=== PATIENT | female | born 1985 | race Caucasian/White ===

== ENCOUNTER 2022-11-14 19:05 | Emergency (ER) | payer MEDICAID, SELFPAY ==
[2022-11-14 19:08] VITALS: BP 157/105; PULSE 87; RESP 18; TEMP 36.6; O2SAT 95; BMI 43.4
--- NOTE | 2022-11-14 19:32 | CTR_ITS ---
PROCEDURE INFORMATION: Exam: CT Abdomen And Pelvis With Contrast Exam date and time: 11/14/2022 7:43 PM Age: 37 years old Clinical indication: Abdominal pain; Localized; Right lower quadrant (rlq); Prior surgery; Surgery date: 6+ months; Surgery type: Tubal, d&c, x4; Additional info: Abdominal pain, bloating, n/v/d, US recently showing abnormal R ovary/mass ? TECHNIQUE: Imaging protocol: Computed tomography of the abdomen and pelvis with contrast. Radiation optimization: All CT scans at this facility use at least one of these dose optimization techniques: automated exposure control; mA and/or kV adjustment per patient size (includes targeted exams where dose is matched to clinical indication); or iterative reconstruction. Contrast material: OMNI 350; Contrast volume: 100 ml; Contrast route: INTRAVENOUS (IV); REPORTING DATA: Count of CT and Cardiac NM exams in prior 12 months: This patient has received 0 known CTs and 0 known cardiac nuclear medicine studies in the 12 months prior to the current study. COMPARISON: CT chest abdpel w/*[id number] 02/18/2018 10:06 PM RADIATION DOSE METRICS: Total DLP (mGy-cm): 949.36 FINDINGS: Lungs: The lung bases appear unremarkable. Liver: Unremarkable. No mass. Gallbladder and bile ducts: Noncalcified gallstones in the gallbladder. There are no secondary signs of cholecystitis. Pancreas: Unremarkable. No ductal dilation. Spleen: Unremarkable. No splenomegaly. Adrenal glands: Unremarkable. No mass. Kidneys and ureters: The kidneys are normal in morphology. No hydronephrosis. No solid mass. Stomach and bowel: No acute gastric abnormality demonstrated. The small bowel is unremarkable as demonstrated. No acute abnormality of the colon. Appendix: No evidence of appendicitis. Intraperitoneal space: No pneumoperitoneum. No significant fluid collection. Vasculature: The aorta is unremarkable as demonstrated. Lymph nodes: No pathologically enlarged lymph nodes are demonstrated. Urinary bladder: The urinary bladder is unremarkable in appearance. Reproductive: 5.5 cm fat density right ovarian lesion consistent with ovarian dermoid. Uterus and left ovary appear unremarkable. Bones/joints: No acute fracture or other acute osseous abnormality. Degenerative spine changes are noted. Soft tissues: Unremarkable. CT/CT abdomen pelvis w con* [id number] IMPRESSION: 1. No acute abnormality demonstrated in the abdomen and pelvis. 2. 5.5 cm fat density right ovarian lesion consistent with ovarian dermoid. This is unchanged from CT abdomen and pelvis of 02/18/2018. 3. Noncalcified gallstones in the gallbladder. There are no secondary signs of cholecystitis. The gallstones are new when compared to CT abdomen of 02/18/2018.
--- NOTE | 2022-11-14 19:32 | W.ED.ABDPA2 ---
HPI - Abdominal Pain General: Chief Complaint: Abdominal Pain Stated Complaint: Swollen Stomach\V Time Seen by Provider: 11/14/22 19:16 Source: patient Mode of arrival: ambulatory Limitations: no limitations History of Present Illness: Patient is a 37-year-old female presents to ED today with complaint of diffuse abdominal pain, bloating, and swelling. She states she feels nauseous and is not able to eat. Patient states pain has been intermittent over the past 6 months or so. She recently has underwent evaluation through her primary care provider at the [facility] and had ultrasound performed which showed a right ovarian mass with recommendations for further evaluation for this. She is having normal bowel movements. No vomiting. No fevers. Menstrual cycle beginning today. Denies vaginal discharge or dyspareunia. MD elicited complaint: abdominal pain Pertinent past history: none Onset (ago): month(s) Pain Consistency: constant Location: Diffuse Severity: moderate Quality: fullness and other (bloating) Radiation: none Migration to: no migration Exacerbating factors: nothing Relieving factors: nothing Associated Symptoms: Reports bloating and nausea; Denies change in bowel habits, chills, dysuria, fever(s), hematochezia, melena and vomiting Related Data: Patient : No Review of Systems Const: Denies: fever(s), chills, body aches, fatigue or malaise Card: Denies: chest pain Resp: Denies: dyspnea GI: Reports: abdominal pain, nausea and bloating; Denies: vomiting, change in bowel habits, pain on defecation, rectal swelling, hematochezia or melena : Reports: vaginal bleeding; Denies: flank pain or dysuria Musc: Reports: back pain; Denies: neck pain, extremity pain, extremity swelling, joint pain or joint swelling Skin/Breast: Denies: rash Neuro: Denies: headache(s), numbness in extremities, weakness in extremities or sensory changes PFSH ED PFSH: Medical History Dermoid cyst of right ovary Psychiatric care Surgical History History of 3 sections History of bilateral tubal ligation Physical Exam Const: COMMON NORMALS: no acute distress, patient oriented x3, no limitations and alert GENERAL APPEARANCE: cooperative NUTRITIONAL APPEARANCE: obese morbidly obese ORIENTATION/CONSCIOUSNESS: Yes awake, Yes oriented to person, Yes oriented to place and Yes oriented to time Resp: COMMON NORMALS: normal respiratory effort and clear to auscultation bilaterally AUSCULTATION: clear to auscultation bilaterally Cardio: COMMON NORMALS: regular rate and regular rhythm RATE: regular rate RHYTHM: regular rhythm GI: COMMON NORMALS: Normal to inspection, nondistended, normoactive bowel sounds present, Soft to palpation and no masses INSPECTION: Yes normal to inspection AUSCULTATION: Yes normoactive bowel sounds PALPATION: Yes Soft to palpation, Yes Tenderness to palpation present (GI) (diffuse but more so to epigastric, RLQ), No Guarding due to palpation present (GI) and No Rigid due to palpation OTHER: limited secondary to body habitus : COMMON NORMALS: Yes no CVA tenderness BLADDER/KIDNEY EXAM: Yes no CVA tenderness Back/Pelvis: COMMON NORMALS: no CVA tenderness, thoracic and lumbar spine normal to inspection, no thoracic nor lumbar tenderness and thoraco-lumbar ROM normal Extremity: COMMON NORMALS: normal to inspection GENERAL: Yes normal exam except as noted Neuro: CARLOS COMA SCALE: document GCS findings [place] coma scale eye opening: Spontaneous Carlos coma scale verbal response: Orientated [place] coma scale motor response: Obey commands Carlos coma scale total score: 15 COMMON NORMALS: patient oriented x3 SENSORIUM/ORIENTATION: Yes alert, Yes oriented to person, Yes oriented to place and Yes oriented to time Skin: COMMON NORMALS: no rashes or lesions noted GENERAL SKIN EXAM: no rashes or lesions noted Course Vital Signs: Vital signs: Vital Signs Temperature 97.8 F 11/14/22 19:08 Pulse Rate 72 11/14/22 20:19 Respiratory Rate 18 11/14/22 20:19 Blood Pressure 165/118 11/14/22 20:19 Pulse Oximetry 96 11/14/22 20:19 Oxygen Delivery Me thod Room Air 11/14/22 20:19 MDM - Abdominal Pain Medical Decision Making Patient's blood work overall is unremarkable. CT imaging showing a 5.5 cm right ovarian lesion consistent with an ovarian dermoid. Radiologist apparently had a CT scan on file back in 2018 which I was not able to visualize and stated this is unchanged from that CT. She will be referred to gynecology for further evaluation and surgical excision if indicated. UA positive for nitrates and trace leuks. She does have blood however this most likely is contamination given her menstrual cycle. She states she is having some lower back discomfort and would like treatment for potential UTI. Recommend she follow-up with primary care provider. Return ED precautions given. Lab Data 11/14/22 19:30 11/14/22 19:30 Labs/Radiology: Radiology Impressions Abdomen/Pelvis CT 11/14/22 19:32 IMPRESSION: 1. No acute abnormality demonstrated in the abdomen and pelvis. 2. 5.5 cm fat density right ovarian lesion consistent with ovarian dermoid. This is unchanged from CT abdomen and pelvis of 02/18/2018. 3. Noncalcified gallstones in the gallbladder. There are no secondary signs of cholecystitis. The gallstones are new when compared to CT abdomen of 02/18/2018. Laboratory Results WBC 8.8 10^3/uL (4.0-10.0) 11/14/22 19:30 RBC 4.65 10^6/uL (4.1-5.3) 11/14/22 19:30 Hgb 12.6 g/dL (11.5-15.3) 11/14/22 19:30 Hct 40.3 % (37.0-47.0) 11/14/22 19:30 MCV 86.7 fl (81-99) 11/14/22 19:30 MCH 27.1 pg (28.0-34.0) L 11/14/22 19:30 MCHC 31.3 g/dL (30.0-36.0) 11/14/22 19:30 RDW 13.6 % (12.1-15.1) 11/14/22 19:30 Plt Count 429 10^3/cmm (130-400) H 11/14/22 19:30 MPV 8.9 fL (7.4-10.4) 11/14/22 19:30 Neut % (Auto) 73.1 % 11/14/22 19:30 Lymph % (Auto) 19.5 % 11/14/22 19:30 [place] % (Auto) 5.5 % 11/14/22 19:30 Eos % (Auto) 1.0 % 11/14/22 19: Baso % (Auto) 0.7 % 11/14/22 19: Neut # (Auto) 6.41 10^3/uL (1.8-7.7) 11/14/22 19:30 Lymph # (Auto) 1.7 10^3/uL (0.8-4.8) 11/14/22 19:30 [place] # (Auto) 0.5 10^3/uL (0.2-0.9) 11/14/22 19:30 Eos # (Auto) 0.1 10^3/uL (0.0-0.8) 11/14/22 19:30 Baso # (Auto) 0.1 10^3/uL (0.0-0.1) 11/14/22 19:30 Nucleated RBC % (auto) 0 % 11/14/22 19: Nucleated RBCs # 0.0 /100WBC 11/14/22 19:30 Sodium 138 mmol/L (136-145) 11/14/22 19:30 Potassium 3.6 mmol/L (3.5-5.1) 11/14/22 19:30 Chloride 101 mmol/L (98-107) 11/14/22 19: Carbon Dioxide 26 mmol/L (22-29) 11/14/22 19:30 Anion Gap 14.6 (5-19) 11/14/22 19:30 BUN 11 mg/dL (6-20) 11/14/22 19:30 Creatinine 0.8 mg/dL (0.5-0.9) 11/14/22 19:30 GFR Calculation 80.7 mL/min (90-130) L 11/14/22 19:30 Glucose 116 mg/dL (65-115) H 11/14/22 19:30 Calculated Osmolality 286 mOsm/kg (285-295) 11/14/22 19:30 Calcium 9.4 mg/dL (8.5-10.5) 11/14/22 19:30 Total Bilirubin 0.2 mg/dL (0.15-1.2) 11/14/22 19:30 AST 18 U/L (0-32) 11/14/22 19:30 ALT 18 U/L (0-33) 11/14/22 19:30 Alkaline Phosphatase 75 U/L (35-105) 11/14/22 19:30 C-Reactive Protein 11.4 mg/L (0.0-4.9) H 11/14/22 19:30 Total Protein 7.5 g/dL (6.6-8.7) 11/14/22 19:30 Albumin 4.5 g/dL (3.5-5.2) 11/14/22 19:30 Globulin 3.0 g/dL (1.3-4.6) 11/14/22 19:30 Lipase 25 U/L (13-60) 11/14/22 19:30 HCG, Qual Negative (Negative) 11/14/22 19:30 Urine Color Yellow (Yellow) 11/14/22 21:00 Urine Appearance Clear (CLEAR) 11/14/22 21:00 Urine pH 7 (5-7) 11/14/22 21:00 Ur Specific [place] 1.000 (1.005-1.030) L 11/14/22 21:00 Urine Protein Trace (Negative) 11/14/22 21:00 Urine Glucose (UA) Norm (Normal) 11/14/22 21:00 Urine Ketones 1+ (Negative) H 11/14/22 21:00 Urine Blood 3+ (Negative) H 11/14/22 21:00 Urine Nitrate Positive (Negative) H 11/14/22 21:00 Urine Bilirubin Neg (Negative) 11/14/22 21:00 Urine Urobilinogen Norm mg/dL (Negative) 11/14/22 21:00 Ur Leukocyte Esterase Trace (Negative) H 11/14/22 21:00 Urine RBC 0-4 /hpf (0-2) H 11/14/22 21:00 Urine WBC 0-4 /hpf (0-5) H 11/14/22 21:00 Ur Squamous Epith Cells 0-4 /hpf (0-5) H 11/14/22 21:00 Amorphous Sediment Not Reportable 11/14/22 21:00 Urine Bacteria 1+ /hpf (NONE) H 11/14/22 21:00 Discharge Plan Discharge Patient Disposition: Home Clinical Impression: Dermoid cyst of right ovary Condition: Stable Prescriptions: New Macrobid 100 mg capsule 100 mg PO BID 7 Days Qty: 14 0RF Rx Instructions: must administer with a meal/food No Action prazosin 5 mg capsule 5 mg PO .HS Qty: 30 1RF trazodone 50 mg tablet 100 mg PO .HS PRN (Reason: insomnia) Qty: 60 2RF duloxetine 20 mg capsule,delayed release(DR/EC) 20 mg PO DAILY Qty: 30 1RF Discharge Orders: Discharge ED (Routine); Ordered 11/14/22 Ordered By: Yu West Referrals: Lubna Romero DO [Primary Care Provider] - Coding Level of Care Code ED Lens Grinder Rough for Ana Lilia Jain
[2022-11-14] MEDS: iohexol 350 mg/mL 500 mL Btl (per mL) IV (19:50)
[2022-11-14 19:52] LABS: Basophils # 0.1 10^3/uL (0.0-0.1); Basophils % 0.7 %; Eosinophils # 0.1 10^3/uL (0.0-0.8); Hematocrit 40.3 % (37.0-47.0); Hemoglobin 12.6 g/dL (11.5-15.3); Lymphocytes # 1.7 10^3/uL (0.8-4.8); Lymphocytes % 19.5 %; Mean Corpuscular HGB Conc 31.3 g/dL (30.0-36.0); Mean Corpuscular Hemoglobin 27.1 pg (28.0-34.0); Mean Corpuscular Volume 86.7 fl (81-99); Mean Platelet Volume 8.9 fL (7.4-10.4); Monocytes # 0.5 10^3/uL (0.2-0.9); Monocytes % 5.5 %; Neutrophils # 6.41 10^3/uL (1.8-7.7); Neutrophils % 73.1 %; Nucleated Red Blood Cells % 0 %; Platelet Count 429 10^3/cmm (130-400); Red Blood Count 4.65 10^6/uL (4.1-5.3); Red Cell Distribution Width 13.6 % (12.1-15.1); White Blood Count 8.8 10^3/uL (4.0-10.0)
[2022-11-14 20:00] LABS: HCG, Serum Qual Negative (Negative)
[2022-11-14 20:04] LABS: Alanine Aminotransferase 18 U/L (0-33); Albumin Level 4.5 g/dL (3.5-5.2); Alkaline Phosphatase 75 U/L (35-105); Anion Gap 14.6 (5-19); Aspartate Amino Transferase 18 U/L (0-32); Blood Urea Nitrogen 11 mg/dL (6-20); C Reactive Protein 11.4 mg/L (0.0-4.9); Calcium 9.4 mg/dL (8.5-10.5); Carbon Dioxide 26 mmol/L (22-29); Chloride 101 mmol/L (98-107); Glomerular Filtration Rate 80.7 mL/min (90-130); Glucose 116 mg/dL (65-115); Lipase 25 U/L (13-60); Osmolality Calculated 286 mOsm/kg (285-295); Potassium 3.6 mmol/L (3.5-5.1); Sodium 138 mmol/L (136-145); Total Bilirubin 0.2 mg/dL (0.15-1.2); Total Protein 7.5 g/dL (6.6-8.7)
[2022-11-14 20:19] VITALS: BP 165/118; PULSE 72; RESP 18; O2SAT 96
[2022-11-14 21:11] LABS: Add Urine Microscopic? YES; Bilirubin Urine Neg (Negative); Blood Urine 3+ (Negative); Glucose Urine UA Norm (Normal); Ketones Urine 1+ (Negative); Leukocyte Esterase Urine Trace (Negative); Nitrate Urine Positive (Negative); Protein Urine Trace (Negative); Urine Appearance Clear (CLEAR); Urine Color Yellow (Yellow); Urobilinogen Urine Norm (Negative); pH Urine 7 (5-7)
[2022-11-14 21:18] LABS: Bacteria Urine 1+ /hpf; RBC Urine 0-4 /hpf (0-2); Squamous Epithelial Cell Urine 0-4 /hpf (0-5); WBC Urine 0-4 /hpf (0-5)
[2022-11-14 21:39] VITALS: BP 165/118; RESP 18
--- NOTE | 2022-11-15 05:48 | DCPLANNER ---
Addendum entered by Renee Richter 11/19/22 13:26: manager advanced received the following message from the [facility] clinic: Attempted to call again on 11/17/22, no voicemail, letter mailed today//JS On 11/16/22 @ 14:46 Lubna Phillips Wrote To [facility] Front Office Attempted to call patient to schedule, no answer and no voicemail//JS Original Note: manager advanced had message to schedule a follow up appointment for patient with [employer] [employer] TECHNICIAN. manager advanced sent patients information to the front office staff at [facility]. Patients information will be printed and reviewed. Clinic will call patient with appointment information.
== END 2022-11-14 21:43 | disposition home or self-care (01) ==
PROVIDERS: Emergency Provider Physician Assistant; PCP Family Medicine
DX: D27.0 Benign neoplasm of right ovary (principal)
CPT/HCPCS: 74177; 80053; 81001; 83690; 84703; 85025; 86140; 99285; Q9967

== ENCOUNTER 2022-11-30 22:50 | Emergency (ER) | payer MEDICAID, SELFPAY ==
[2022-11-30 23:03] VITALS: BP 143/87; PULSE 65; RESP 14; TEMP 36.9; O2SAT 96; BMI 43.4
--- NOTE | 2022-11-30 23:23 | XRR_ITS ---
PROCEDURE INFORMATION: Exam: XR Right Ankle Exam date and time: 11/30/2022 11:37 PM Age: 37 years old Clinical indication: Injury or trauma; Fall; Sprain or strain; Ankle; Right TECHNIQUE: Imaging protocol: Radiologic exam of the right ankle. Views: 3 or more views. COMPARISON: No relevant prior studies available. FINDINGS: Bones/joints: On lateral view only, there is concern for a very subtle nondisplaced fracture in the distal anterior tibia. Advise correlation. No dislocation. Otherwise negative. Soft tissues: Mild right ankle swelling. XR/XR ankle RT min 3V* [id number] IMPRESSION: Concern for very subtle fracture in the distal anterior tibia on lateral view only, advise correlation.
--- NOTE | 2022-12-01 00:38 | ED_ITS ---
HPI - Extremity Problem General: Chief complaint: Extremity Injury, Lower Stated complaint: Rt Ankle Injury Time Seen by Provider: 11/30/22 23:11 History of Present Illness: 37 yo female patient present to ER with right ankle pain. Pt was helping son and rolled ankle in a ditch. Patient states she cant bear weight on it. Pt denies any numbness or tingling. Pt denies any other trauma or injury. Associated symptoms: Deny chest pain, fever(s) or rash Review of Systems Const: Denies: fever(s), chills, body aches, change in appetite, change in weight, fatigue, malaise or diaphoresis Eyes: Denies: change in vision, blurry vision, blind spots, photophobia, eye discomfort, eye discharge, eye redness, floaters or seeing flashes ENMT: Denies: throat pain, uvular edema, enlarged tonsils, odynophagia, hoarseness, mouth pain, swelling of lips/tongue, oral sores, bleeding gums, dental pain, dry mouth, ear or mastoid pain, ear discharge, change in hearing, tinnitus, disequilibrium, nasal discharge, nasal congestion, post nasal drip or sinus pain Card: Denies: chest pain, palpitations, irregular heart rhythm, edema, swelling of feet/ankles, lightheadedness, syncope, pre-syncope, dyspnea on exertion, orthopnea, leg pain with exertion or acrocyanosis Resp: Denies: dyspnea, productive cough, non-productive cough, wheezing, stridor, pain on inspiration, change in phlegm color, hemoptysis or chest congestion GI: Denies: abdominal pain, nausea, vomiting, hematemesis, dysphagia, diarrhea, constipation, GI cramping, change in bowel habits or rectal pain : Denies: flank pain, difficulty voiding, dysuria, urinary frequency, urinary urgency, urinary hesitancy or hematuria Musc: Denies: neck pain, back pain, joint pain, joint swelling, joint redness, joint warmth or deformity Skin/Breast: Denies: rash, pruritus, erythema, sores, new lesions, changes in skin color or dry skin Neuro: Denies: headache(s), numbness in extremities, weakness in extremities, sensory changes, lack of coordination, difficulty walking, frequent falls, dizziness, vertigo, confusion, behavioral changes, Slurred speech present, difficulty communicating thoughts or seizure-like activity Psych: Denies: anxiety, depression, suicidal ideation or homicidal ideation Endo: Denies: polyuria, polydipsia, tired all the time, cold intolerance, excessive sweating, flushing, hot flashes or heat intolerance Ulysses/Lymph: Denies: easy bruising, easy bleeding, petechiae, purpura, enlarged lymph nodes or tender lymph nodes All/Imm: Denies: urticaria, throat swelling, tongue swelling, facial swelling, acute wheezing or itchy eyes PFSH ED PFSH: Medical History Dermoid cyst of right ovary Psychiatric care Surgical History History of 3 sections History of bilateral tubal ligation Family History Mother Ovarian cancer Family/Other No problems noted. Father Heart disease Hyperlipidemia Hypertension Diabetes Denies family history of Colon cancer Breast cancer Uterine cancer Thyroid disease Stroke Physical Exam Const: COMMON NORMALS: no acute distress, average body habitus, patient oriented x3, no limitations, healthy appearing, alert and well nourished HENMT: THROAT: no uvular edema Resp: COMMON NORMALS: normal respiratory effort and No retractions Cardio: COMMON NORMALS: regular rate and regular rhythm RATE: regular rate RHYTHM: regular rhythm : COMMON NORMALS: Yes no CVA tenderness BLADDER/KIDNEY EXAM: Yes no CVA tenderness Back/Pelvis: COMMON NORMALS: no CVA tenderness, thoracic and lumbar spine normal to inspection, no thoracic nor lumbar tenderness and thoraco-lumbar ROM normal Extremity: RIGHT LOWER EXTREMITY: Yes foot & digits (pain and swelling lateral and medial aspect pt is NVI distally) Neuro: COMMON NORMALS: patient oriented x3 SENSORIUM/ORIENTATION: Yes alert Psych: COMMON NORMALS: mental status grossly normal, Normal thought process present, denies homicidal ideation and denies suicidal ideation THOUGHT PROCESS: Normal thought process present Course Vital Signs: Vital signs: Vital Signs Temperature 98.4 F 11/30/22 23:03 Pulse Rate 65 11/30/22 23:03 Respiratory Rate 14 11/30/22 23:03 Blood Pressure 143/87 11/30/22 23:03 Pulse Oximetry 96 11/30/22 23:03 Oxygen Delivery Me thod Room Air 11/30/22 23:03 MDM - Extremity (Nontraumatic) Medical Decision Making Patient is well appearing non toxic and in no acute distress. 37 yo female patient present to ER with right ankle pain. Pt was helping son and rolled ankle in a ditch. Patient states she cant bear weight on it. Pt denies any numbness or tingling. Pt denies any other trauma or injury. xray reveals a questionable tibial fx this is the point of pain and swelling. I will place patient in splint and give crutches and have follow up with Ortho. Pt is NVi distally pre and post splint application. Pt only wants motrin for pain, Lab Data Radiology Impressions Ankle X-Ray 11/30/22 23:23 IMPRESSION: Concern for very subtle fracture in the distal anterior tibia on lateral view only, advise correlation. Discharge Plan Discharge Condition: Stable Prescriptions: No Action prazosin 5 mg capsule 5 mg PO .HS Qty: 30 2RF duloxetine 20 mg capsule,delayed release(DR/EC) 20 mg PO DAILY Qty: 30 2RF trazodone 50 mg tablet 100 mg PO .HS PRN (Reason: insomnia) Qty: 60 2RF Referrals: Lubna Romero DO [Primary Care Provider] - Coding Level of Care Code ED Senior Account Executive for Ana Lilia Jain
[2022-12-01] MEDS: ibuprofen 800 mg tablet PO (01:31)
--- NOTE | 2022-12-01 08:02 | DCPLANNER ---
Addendum entered by Renee Richter 12/23/22 06:49: Patient had a follow up appointment scheduled with ortho - patient did attend appointment Addendum entered by Renee Richter 12/01/22 10:42: Patient has a follow up appointment scheduled for Saturday, December 03, 2022 at 2:[address] Anderson at ortho. Original Note: manager sterile processing had message to schedule a follow up appointment for patient with ortho. manager sterile processing sent patients information to the front office staff at ortho. Patients information will be printed and reviewed. Clinic will call patient with appointment information.
== END 2022-12-01 01:40 | disposition home or self-care (01) ==
PROVIDERS: Emergency Provider Registered Nurse; PCP Family Medicine
DX: M25.571 Pain in right ankle and joints of right foot (principal)
CPT/HCPCS: 29515; 73610; 99283; E0114

== ENCOUNTER 2022-12-06 09:11 | Outpatient (CLI) | payer MEDICAID, SELFPAY | END 2022-12-06 09:12 | disposition home or self-care (01) | LOC: SPT 09:11 | PROVIDERS: PCP Family Medicine; Visit Provider Podiatrist Foot & Ankle Surgery | DX: Z46.89 Encounter for fitting and adjustment of other specified devices (principal); S82.301D Unspecified fracture of lower end of right tibia, subsequent encounter for closed fracture with routine healing; X58.XXXD Exposure to other specified factors, subsequent encounter | CPT/HCPCS: 97760; L4361 ==

== ENCOUNTER → 2022-12-16 14:33 | Outpatient (BNVA) | payer MEDICAID, SELFPAY | PROVIDERS: PCP Family Medicine; Visit Provider Podiatrist Foot & Ankle Surgery | DX: S82.391D Other fracture of lower end of right tibia, subsequent encounter for closed fracture with routine healing (principal); W19.XXXD Unspecified fall, subsequent encounter | CPT/HCPCS: 73610 ==

== ENCOUNTER 2022-12-16 16:44 | Outpatient (CLI) | payer MEDICAID, SELFPAY | END 2022-12-16 16:45 | disposition home or self-care (01) | LOC: SPT 16:44 | PROVIDERS: PCP Family Medicine; Visit Provider Podiatrist Foot & Ankle Surgery | DX: Z46.89 Encounter for fitting and adjustment of other specified devices (principal); S82.301D Unspecified fracture of lower end of right tibia, subsequent encounter for closed fracture with routine healing; X58.XXXD Exposure to other specified factors, subsequent encounter | CPT/HCPCS: 97760; L1902 ==

== ENCOUNTER → 2022-12-21 07:49 | Outpatient (BNVA) | payer MEDICAID, SELFPAY | PROVIDERS: PCP Family Medicine; Visit Provider Obstetrics & Gynecology | DX: N92.6 Irregular menstruation, unspecified (principal) | CPT/HCPCS: 76830 ==

== ENCOUNTER → 2023-02-09 11:01 | Outpatient (BNVA) | payer MEDICAID, SELFPAY | PROVIDERS: PCP Family Medicine; Visit Provider Nurse Practitioner Family | DX: R05.9 Cough, unspecified (principal); Z20.822 Contact with and (suspected) exposure to COVID-19 | CPT/HCPCS: 87426 ==

== ENCOUNTER → 2024-08-27 15:51 | Outpatient (BNVA) | payer MEDICAID, SELFPAY | PROVIDERS: PCP Family Medicine; Visit Provider Family Medicine | DX: I10 Essential (primary) hypertension (principal); R06.02 Shortness of breath; R60.0 Localized edema | CPT/HCPCS: 80053; 83880; 84439; 84443; 85025 ==

== ENCOUNTER 2024-09-05 07:57 | Outpatient (CLI) | payer MEDICAID, SELFPAY ==
--- NOTE | 2024-09-05 08:15 | US_ITS ---
WS: [id number] US pelv w/transvag [id number] HISTORY: f/u ovarian cyst COMPARISON: 12/21/2022 Uterus: 8.6 cm x 4.1 cm x 4.4 cm. Normal size uterus. Transvaginal imaging of the uterus is somewhat limited as the uterus is tipped directly posterior. No abnormality identified. Nabothian cyst. Endometrium: 0.7 cm. Limited by posterior position of the uterus. No abnormality seen. Right ovary: Fat-containing solid mass in the RIGHT adnexa measures 5.4 x 4.9 x 5.2 cm. Consistent with the previously described dermoid. Separate ovaries not identified. No enlargement since the CT of 11/14/2022. Left ovary: 3.2 cm x 2.8 cm x 2.5 cm. Normal size and vascularity, no cystic or solid masses. No free fluid in the cul-de-sac. US/US pelv w/transvag [id number] IMPRESSION: 1. Stable RIGHT adnexal dermoid measuring 5.4 x 4.9 x 5.2 cm. 2. Limited but unremarkable appearance of the endometrium and uterus. 3. No LEFT ovarian cyst.
== END 2024-09-05 07:58 | disposition home or self-care (01) ==
LOC: RAD 08:00
PROVIDERS: PCP Family Medicine; Visit Provider Family Medicine
DX: D27.0 Benign neoplasm of right ovary (principal); N88.8 Other specified noninflammatory disorders of cervix uteri
CPT/HCPCS: 76830; 76856

== ENCOUNTER → 2024-09-24 12:08 | Outpatient (BNVA) | payer MEDICAID, SELFPAY | PROVIDERS: PCP Family Medicine; Visit Provider Family Medicine | DX: E03.9 Hypothyroidism, unspecified (principal); I10 Essential (primary) hypertension; R06.02 Shortness of breath; R60.0 Localized edema; E66.01 Morbid (severe) obesity due to excess calories; Z68.41 Body mass index [BMI] 40.0-44.9, adult | CPT/HCPCS: 80048; 84439; 84443; 84481 ==

== ENCOUNTER 2024-09-28 09:09 | Outpatient (CLI) | payer MEDICAID, SELFPAY ==
--- NOTE | 2024-09-28 09:15 | USCV_ITS ---
Ashley Palomo Age: 39 Gender: F : 1985 Exam Date: 09/28/2024 09:27 Ordering Phys: Mary Ellen Mensah MD Technologist: CAITLIN [place] [facility] [place]: sob, edema BP: 114 / 72 HR: 68 Rhythm: Sinus Technical Quality: Adequate MEASUREMENTS (Male / Female) Normal Values 2D ECHO LV Diastolic Diameter PLAX 4.1 cm 4.2 - 5.9 / 3.9 - 5.3 cm IVS Diastolic Thickness 0.9 cm 0.6 - 1.0 / 0.6 - 0.9 cm IVS Systolic Thickness 1.7 cm LVPW Diastolic Thickness 1.3 cm 0.6 - 1.0 / 0.6 - 0.9 cm LVPW Systolic Thickness 1.7 cm LVOT Diameter 2.0 cm LV Ejection Fraction 2D Teich 69.8 % LV Ejection Fraction MOD 4C 71.4 % LV Ejection Fraction MOD 2C 57.1 % LV Ejection Fraction 2C AL 58.5 % LA Diameter 3.7 cm RA Systolic Volume 4C AL 35.8 ml RA Systolic Volume 4C MOD 35.6 ml LA Sys Volume AL 44.0 cm cubed LA Sys Volume Index AL 19.5 cm cubed/m squared Aorta at Sinotubular Diameter 1.9 cm IVC Diameter 1.8 cm M-MODE LA Ao Ratio MM 1.8 AV Cusp Separation MM 1.5 cm DOPPLER AV Peak Velocity 157.0 cm/s LVOT Peak Velocity 93.0 cm/s AV Area Cont Eq vti 1.9 cm squared AV Area Cont Eq pk 1.9 cm squared MV Peak Velocity 209.5 cm/s MV Area PHT 5.3 cm squared Mitral E to A Ratio 1.2 TV Peak Velocity 240.0 cm/s TR Peak Velocity 303.0 cm/s TR Peak Gradient 36.7 mmHg TR Mean Velocity 270.0 cm/s TR Mean Gradient 29.5 mmHg TR Velocity Time Integral 90.8 cm PV Peak Velocity 115.0 cm/s RV Ejection Time 0.3 s FINDINGS Left Ventricle Normal left ventricular size, systolic function and wall thickness, with no regional wall motion abnormalities. Left ventricular ejection fraction is estimated at 60 %. Grade II/IV diastolic dysfunction, moderately elevated filling pressures. Right Ventricle The right ventricle is normal in size and function. Right Atrium The right atrium is normal in size. Left Atrium The left atrium is normal in size. Mitral Valve Structurally normal mitral valve without significant stenosis or prolapse. There is no mitral regurgitation. Aortic Valve Mild aortic valve calcification. No aortic valve stenosis. Trace aortic valve regurgitation. Tricuspid Valve Trace tricuspid valve regurgitation. Pulmonic Valve Trace pulmonary valve regurgitation. Pericardium Normal pericardium without effusion. Aorta Normal ascending aorta dimension. IVC The inferior vena cava appears normal. CONCLUSIONS Normal left ventricular size, systolic function and wall thickness, with no regional wall motion abnormalities. Left ventricular ejection fraction is estimated at 60 %. Grade II/IV diastolic dysfunction, moderately elevated filling pressures. Mild aortic valve calcification. No aortic valve stenosis. Trace aortic valve regurgitation. There is no pericardial effusion. Right atrial pressure is around 5 mm of mercury. Dirk Art MD (Electronically Signed) Final Date: 14 Oct 2024 21:59 S
== END 2024-09-28 09:10 | disposition home or self-care (01) ==
PROVIDERS: PCP Family Medicine; Visit Provider Family Medicine
DX: R06.02 Shortness of breath (principal); R60.0 Localized edema; I10 Essential (primary) hypertension; R93.1 Abnormal findings on diagnostic imaging of heart and coronary circulation; I35.8 Other nonrheumatic aortic valve disorders
CPT/HCPCS: 93306

== ENCOUNTER 2024-10-02 06:59 | Day surgery (SDC) | payer MEDICAID, SELFPAY ==
--- NOTE | 2024-10-01 22:44 | W.PM.OPSFHP ---
Same Day Surgery H&P Indication for Procedure/HPI DATE OF PROCEDURE: October 01, 2024 CHIEF COMPLAINT/INDICATIONFOR SURGICAL PROCEDURE: heavy and prolonged menstrual bleeding PREOP DIAGNOSIS: menometrorrhagia PLANNED PROCEDURE: Operation Date: 10/02/24 08:45 Proposed Procedures p Hysteroscopy w/ Endometrial Sampling 95890, 46521, N93.9(Not Applicable) - Kali Knight MD s possible endometrial polypectomy(Not Applicable) - Kali Knight MD s Endometrial Ablation(Not Applicable) - Kali Knight MD Medications/Allergies* Allergies/Adverse Reactions Allergy/AdvReac Type Severity Reaction Status Date / Time adhesive tape Allergy Intermediate ALGY-Hives Verified 09/24/24 08:50 shellfish derived Allergy ALGY-Anaphy Verified 09/24/24 08:50 laxis Pertinent History/Comorbid Conditions* Medical History (Updated 09/24/24 @ 12:14 by Mary Ellen Mensah MD) Morbid obesity with body mass index of 40.0-44.9 in adult Hypothyroidism (acquired) GERD without esophagitis Shortness of breath Hypertension, essential Edema of both lower legs Dermoid cyst of right ovary Psychiatric care Surgical History (Updated 09/27/22 @ 04:55 by Nan Estrada MD) History of 3 sections History of bilateral tubal ligation Family History (Updated 11/29/22 @ 15:11 by Armin Banegas) Ovarian cancer Mother Diabetes Father Heart disease Father Hyperlipidemia Father Hypertension Father Denies family history of Colon cancer Breast cancer Uterine cancer Thyroid disease Stroke Social History Smoking and tobacco/nicotine status: former use of tobacco/nicotine Quit status (tobacco/nicotine): has quit using Year quit tobacco: 2019 Alcohol intake: current Alcohol intake frequency: holidays/special occasions only Substance/Drug Use: never Household members: children Marital status: Single Number of children: 3 Highest education level completed: 8th Grade Current occupational status: unemployed Previous occupational history: FINANCE ANALYST Pertinent Exam Findings alert, oriented x 3, clear to auscultation bilaterally and regular rate & rhythm Recommendations Surgery/Procedure today Coding Level of Care Code Acute Code for Chg Fwd
[2024-10-02] VITALS (11 sets, daily range): BP systolic 91–138; BP diastolic 76–94; PULSE 61–91; RESP 13–18; TEMP 36.1–36.6; O2SAT 94–100; BMI 44.6
--- NOTE | 2024-10-02 07:25 | W.PM.OPSUD ---
Surgery/Procedure H&P Update DATE OF PROCEDURE: October 02, 2024 DATE H&P PERFORMED: 10/01/24 H&P UPDATE INFORMATION: I have reviewed H&P completed within last 30 days, I have examined patient prior to procedure and No changes to prior documentation PREOP DIAGNOSIS: abnormal uterine bleeding PLANNED PROCEDURE: Operation Date: 10/02/24 08:45 Proposed Procedures p Hysteroscopy w/ Endometrial Sampling 27897, 04303, N93.9(Not Applicable) - Kali Knight MD s possible endometrial polypectomy(Not Applicable) - Kali Knight MD s Endometrial Ablation(Not Applicable) - Kali Knight MD
[2024-10-02 07:38] LABS: OR HCG Qualitative Urine Negative (Negative)
[2024-10-02] MEDS: sodium chloride 0.9% 1,000 ML 30 ML IV (07:56)
[2024-10-02] MEDS: scopolamine 1 mg PATCH 1 PATCH TRANSDERMA (08:02)
--- NOTE | 2024-10-02 08:05 | ANES.PREANE2 ---
Pre-Anesthetic Assessment Height/Weight: Height 5 ft 1 in Weight 236 lb Temp Pulse Resp BP Pulse Ox O2 Del Method 97.7 F 67 18 138/94 99 Room Air 10/02/24 07:39 10/02/24 07:39 10/02/24 07:39 10/02/24 07:39 10/02/24 07:39 10/02/24 07:39 Preop Diagnosis: abnormal uterine bleeding Operation Date: 10/02/24 08:45 Proposed Procedures p Hysteroscopy w/ Endometrial Sampling 10433, 41922, N93.9(Not Applicable) - Kali Knight MD s possible endometrial polypectomy(Not Applicable) - Kali Knight MD s Endometrial Ablation(Not Applicable) - Kali Knight MD Was Beta Kiera taken within 24 hours: N/A Was Clonidine taken within 24 hours: N/A Last intake: Intake Last Liquid Date 10/01/24 Last Liquid Time 20:00 Last Solid Date 10/01/24 Last Solid Time 22:00 Social No alcohol and No tobacco Exam alert, oriented x 3, clear to auscultation bilaterally and regular rate & rhythm Airway Submandibular: within normal limits Cervical ROM: within normal limits Mallampati: Class III Dentition: full Anesthetic Plan ASA status: 3 Anesthesia: General Other: No prior issues with anesthesia NPO since yesterday evening History of GERD, controlled with omeprazole Hypothyroidism on Synthroid Hypertension on triamterene?HCTZ History of PTSD BMI 44 Labs performed in July reviewed and acceptable for procedure METs greater than 4 Plan for general anesthesia Medications/Allergies Home Medications ?Medication ?Instructions ?Recorded ?Confirmed ?Last Taken ?Type ASO #1 ea 12/16/22 10/01/24 Unknown Rx omeprazole 20 mg capsule,delayed 20 mg PO DAILY #90 caps 08/27/24 10/01/24 10/01/24 Rx release triamterene 37.5 1 tab PO QAM #90 tabs 08/27/24 10/01/24 10/01/24 Rx mg-hydrochlorothiazide 25 mg tablet tirzepatide (weight loss) 2.5 2.5 mg (0.5 mL) SUBCUT ONCE #2 mL 09/24/24 10/01/24 Unknown Rx mg/0.5 mL subcutaneous pen injector (Zepbound) potassium chloride 10 mEq 10 meq PO DAILY #90 tabs 09/25/24 10/01/24 10/01/24 Rx tablet,extended release (Klor-Con) levothyroxine 25 mcg tablet 25 mcg PO DAILY #60 tabs 09/28/24 10/01/24 10/01/24 Rx (Synthroid) Allergies Allergy/AdvReac Type Severity Reaction Status Date / Time adhesive tape Allergy Intermediate ALGY-Hives Verified 09/24/24 08:50 shellfish derived Allergy ALGY-Anaphy Verified 09/24/24 08:50 laxis Current Medications Generic Name Dose Route Start Last Admin Trade Name Freq PRN Reason Stop Dose Admin Sodium Chloride 1,000 mls @ 30 mls/hr 10/02/24 07:30 10/02/24 07:56 Sodium Chloride 0.9% IV 10/03/24 07:29 30 mls/hr .Q24H ANABELLE Administration PFSH Anesthesia Medical History Morbid obesity with body mass index of 40.0-44.9 in adult Hypothyroidism (acquired) GERD without esophagitis Shortness of breath Hypertension, essential Edema of both lower legs Dermoid cyst of right ovary Psychiatric care Surgical History History of 3 sections History of bilateral tubal ligation Family History Mother Ovarian cancer Family/Other No problems noted. Father Heart disease Hyperlipidemia Hypertension Diabetes Denies family history of Colon cancer Breast cancer Uterine cancer Thyroid disease Stroke Social History Smoking and tobacco/nicotine status: former use of tobacco/nicotine Quit status (tobacco/nicotine): has quit using Year quit tobacco: 2019 Alcohol intake: current Alcohol intake frequency: holidays/special occasions only Substance/Drug Use: never Household members: children Marital status: Single Number of children: 3 Highest education level completed: 8th Grade Current occupational status: unemployed Previous occupational history: HEALTHCARE MANAGEMENT CONSULTANT
[2024-10-02] MEDS: ibuprofen 800 mg tablet PO (10:10)
--- NOTE | 2024-10-02 10:45 | ANE.PACU2 ---
Inpatient post-anesthesia follow up: Airway intact: Yes Vital signs: Temperature 97.9 F Pulse Rate 61 Respiratory Rate 16 Blood Pressure 129/83 Pulse Oximetry 100 Oxygen Delivery Me thod Room Air Oxygen Flow Rate Fraction of Inspir ed Oxygen Hydration adequate: Yes Nausea and vomiting: No Pain level: 1 Mental status: Baseline
--- NOTE | 2024-10-03 02:54 | PM.OP ---
Operative Report Date of procedure: October 03, 2024 Pre-op diagnosis: menometrorrhagia Post-op diagnosis: same Post-op findings: Normal endometrial cavity No endometrial polyps or fibroids Minimal endometrial tissue Global endometrial ablation following procedure Procedure done: hysteroscopy curettage of uterus endometrial ablation with Novasure device Implants: none Specimens removed/disposition: endometrial curettings Surgeon: Kali Knight MD Anesthesia: MAC Estimated blood loss (mL): 0 Complications: none Findings: Normal endometrial cavity No endometrial polyps or fibroids Minimal endometrial tissue Global endometrial ablation following procedure Condition: stable Disposition: PACU Brief History: 39 y.o. with history of menometrorrhagia Procedure: Informed consent was obtained. The patient was taken to the OR and placed on the table. General endotracheal anesthesia was induced. The patient was then placed in dorsolithotomy position. The perineum were then prepped and draped in the usual fashion. A speculum was placed in the vagina. The anterior lip of the cervix was grasped with a sharp-toothed tenaculum. The uterus was sounded to 8 cm. The cervix was serially dilated with Hegar dilators. . A hysteroscope was placed into the endometrial cavity. The endometrial cavity was seen to be normal. There were no polyps or fibroids. There was minimal endometrial tissue. The hysteroscope was then removed. Endometrial curettage was done with a sharp curette. Endometrial tissue was sent to pathology. The Novasure device was then primed and inserted into the endometrial cavity. The cervical occlusion sleeve was advanced. Cavity integrity test was done. The device was activated for 60 seconds. The Novasure device was then removed. Repeat hysteroscopy showed an intact endometrial cavity with adequate global endometrial ablation. All instruments were then removed. The sharp-toothed tenaculum was removed. There was no bleeding from the endometrial cavity or cervix. The patient was then placed supine and awakened and taken to the PACU. Postop condition: stable EBL: 0 cc Sponge and instruments counts were normal x 2 Complications: none
== END 2024-10-02 10:45 | disposition home or self-care (01) ==
PROVIDERS: PCP Family Medicine; Visit Provider Obstetrics & Gynecology
PROC: 0UJD8ZZ Inspection of Uterus and Cervix, Via Natural or Artificial Opening Endoscopic (ICD-10-PCS; CPT 58555; principal; 2024-10-02 08:45)
PROC: (CPT 58999; 2024-10-02 08:45)
DX: N92.1 Excessive and frequent menstruation with irregular cycle (principal); E03.9 Hypothyroidism, unspecified; E66.01 Morbid (severe) obesity due to excess calories; Z68.41 Body mass index [BMI] 40.0-44.9, adult; Z87.891 Personal history of nicotine dependence; K21.9 Gastro-esophageal reflux disease without esophagitis; Z79.899 Other long term (current) drug therapy
CPT/HCPCS: 58563; 81025; 88305; J1100; J1885; J2250; J2405; J2704; J3010; J3490; J7030; J9999

== ENCOUNTER 2024-10-25 20:00 | Outpatient (CLI) | payer MEDICAID, SELFPAY | END 2024-10-25 20:01 | disposition home or self-care (01) | LOC: SLEEP 23:02 | PROVIDERS: PCP Family Medicine; Referring Provider Family Medicine; Visit Provider Internal Medicine Pulmonary Disease | DX: G47.33 Obstructive sleep apnea (adult) (pediatric) (principal); G47.36 Sleep related hypoventilation in conditions classified elsewhere | CPT/HCPCS: 95810 ==

== ENCOUNTER → 2024-12-27 13:32 | Outpatient (BNVA) | payer MEDICAID, SELFPAY | PROVIDERS: PCP Family Medicine; Visit Provider Family Medicine | DX: I10 Essential (primary) hypertension (principal); I83.813 Varicose veins of bilateral lower extremities with pain; E66.01 Morbid (severe) obesity due to excess calories; Z68.41 Body mass index [BMI] 40.0-44.9, adult | CPT/HCPCS: 80048; 80061; 85025 ==

== ENCOUNTER 2025-01-10 09:37 | Outpatient (CLI) | payer MEDICAID, SELFPAY ==
--- NOTE | 2025-01-10 09:30 | USR_ITS ---
PROCEDURE INFORMATION: Exam: US Duplex Lower Extremity Veins, Bilateral Exam date and time: 01/10/2025 9:57 AM Age: 39 years old Clinical indication: Varicose veins of lower extremities; Additional info: Bilateral varicose veins with pain and swelling TECHNIQUE: Imaging protocol: Real-time duplex ultrasound of the bilateral extremities with 2-D franco scale, color Doppler flow and spectral waveform analysis including responses to compression and other maneuvers (when performed) with image documentation. Complete exam focused on the lower extremity veins. COMPARISON: CR (LOW EXM, ) 11/30/2022 11:37 PM FINDINGS: Right deep veins: Unremarkable. The common femoral, femoral, proximal profunda femoral and popliteal veins are patent without thrombus. Normal Doppler waveforms. Normal compressibility and/or augmentation response. Reflux times are as follows: Right SFJ 0.84 seconds. Right greater saphenous vein proximally 1.47 seconds, greater saphenous vein midportion 1.66 seconds, greater saphenous vein below the knee 2.12 seconds. Left deep veins: Unremarkable. The common femoral, femoral, proximal profunda femoral and popliteal veins are patent without thrombus. Normal Doppler waveforms. Normal compressibility and/or augmentation response. Superficial veins: Greater saphenous veins at the saphenofemoral junctions are patent bilaterally without thrombus. Soft tissues: Unremarkable. US/CV niraj dup insutamela [facility] [id number] IMPRESSION: No evidence of deep vein thrombosis.
== END 2025-01-10 09:38 | disposition home or self-care (01) ==
LOC: RAD 09:37
PROVIDERS: PCP Family Medicine; Visit Provider Family Medicine
DX: I83.813 Varicose veins of bilateral lower extremities with pain (principal)
CPT/HCPCS: 93970

== ENCOUNTER 2025-01-15 19:52 | Outpatient (CLI) | payer MEDICAID, SELFPAY | END 2025-01-15 19:53 | disposition home or self-care (01) | LOC: SLEEP 19:53 | PROVIDERS: PCP Family Medicine; Visit Provider Internal Medicine Pulmonary Disease | DX: G47.33 Obstructive sleep apnea (adult) (pediatric) (principal) | CPT/HCPCS: 95811 ==